=== PATIENT | female | born 1960 | race Caucasian/White ===

== ENCOUNTER 2020-10-13 12:12 | Outpatient (CLI) | payer BC | END 2020-10-13 23:59 | disposition home or self-care (01) | LOC: LAB 12:12 | PROVIDERS: ATTEND Student in an Organized Health Care Education/Training Program | DX: Z01.812 Encounter for preprocedural laboratory examination (principal); Z20.822 Contact with and (suspected) exposure to COVID-19 | CPT/HCPCS: C9803; U0003 ==

== ENCOUNTER 2020-10-19 12:17 | Day surgery (SDC) | payer BC ==
[~2020-10-19 12:17] MED LIST: BETA ACET/BET NA PHOS MDV 6 MG/ML VIAL ONE; BUPIVACAINE 0.5 % PF 150 MG/30 ML VIAL ONE; IOHEXOL 240MG/ML 50 ML IV ONE; LIDOCAINE HCL/MPF 1% 30 ML VIAL IJ ONE
== END 2020-10-19 15:05 | disposition home or self-care (01) ==
LOC: DS 12:17
PROVIDERS: ATTEND Student in an Organized Health Care Education/Training Program
DX: M25.852 Other specified joint disorders, left hip (principal)
CPT/HCPCS: 27095; 73501; 73525; A6402; J0702; J2704; J3490 ×3; Q9966; 73020